=== PATIENT | male | born 1960 | race Caucasian/White ===

== ENCOUNTER → 2019-07-31 | Outpatient (CLI) | payer BC ==
--- NOTE | 2019-07-31 10:17 | RADIOLOGY REPORT (SQ) ---
EXAM DESCRIPTION: UGI SERIES COMPLETED DATE/TIME: 07/31/2019 9:37 am REASON FOR STUDY: *W/BASW* ESOPHAGEAL OBSTRUCTION (K22.2) K22.2 ESOPHAGEAL OBSTRUCTION COMPARISON: None. TECHNIQUE: Under fluoroscopic guidance, patient ingested effervescent granules followed by thick and thin barium. Fluoroscopic spot images and routine radiographic images acquired and stored on PACS. 12 MM BARIUM TABLET GIVEN: Yes. 2 MINUTES DELAY IN PASSAGE AT THE GE JUNCTION. LIMITATIONS: None. FLUOROSCOPY TIME: FLUORO TIME: 3 minutes 19 images saved to PACS. FINDINGS: NEUROMUSCULAR COORDINATION OF SWALLOW: Normal. No aspiration. ESOPHAGEAL MOTILITY: Normal peristalsis. No esophageal spasm. ESOPHAGEAL MUCOSA: Normal mucosa without masses or ulceration. Mild narrowing at the GE junction. GASTRO-ESOPHAGEAL JUNCTION: Mild gastroesophageal reflux. No hiatal hernia. 2 minutes delay in pass age of the 12 mm barium tablet across the GE junction. STOMACH: Normal without masses or ulcerations. GASTRIC OUTLET: No delay in emptying. Normal pylorus. DUODENAL BULB: Normal distention. No spasm or ulceration. DUODENUM: Prominent mucosal folds throughout the 2nd and 3rd portions of the duodenum. Cannot rule o ut inflammatory process. PROXIMAL SMALL BOWEL: Mucosa normal. No extrinsic masses or malrotation. NON-GI TRACT STRUCTURES: No significant finding. OTHER: No other significant finding. IMPRESSION: 1. MILD NARROWING AT THE GE JUNCTION WHICH DELAYS PASSAGE OF THE 12 MM BARIUM TABLET FO R APPROXIMATELY 2 MINUTES. MILD REFLUX NOTED. 2. PROMINENT MUCOSAL FOLDS OF THE 2ND AND 3RD PORTION THE DUODENUM WITH MILD LUMINAL NARROWING. JO NTAR PROCESS CANNOT BE RULED ENTIRELY RULED OUT. COMMENT: Recommend endoscopy for further evaluation of the distal esophagus and duodenum. Quality ID 145: Final reports for procedures using fluoroscopy that document radiation exposure pat cielo, or exposure time and number of fluorographic images (if radiation exposure indices are not avail able) TECHNICAL DOCUMENTATION: JOB ID: [id number] [employer]- All Rights Reserved Reading location - IP/workstation name: [email or web address]
== END ==
LOC: RAD 08:43
PROVIDERS: ATTEND Internal Medicine
DX: K22.2 Esophageal obstruction (principal); K21.9 Gastro-esophageal reflux disease without esophagitis
CPT/HCPCS: 74247